=== PATIENT | female | born 1995 | race Hispanic/Latino ===

== ENCOUNTER 2017-10-14 01:12 | Inpatient (IN) | payer MEDICAID, OTHER ==
[~2017-10-14] VITALS: Ht 160 cm; Wt 76.2 kg
[~2017-10-14 01:12] MED LIST: PREN-64 PO
[2017-10-14 01:35] VITALS: BP 107/58
[2017-10-14 01:56] LABS: BILIRUBIN,URINE Negative (NEGATIVE); COLOR,URINE Yellow (YELLOW); GLUCOSE, URINE (UA) Negative (NEGATIVE); KETONES,URINE Negative (NEGATIVE); LEUKOCYTE ESTERASE ,URINE Large (NEGATIVE); NITRATE,URINE Negative (NEGATIVE); OCCULT BLOOD,URINE Negative (NEGATIVE); PROTEIN,URINE Negative (NEGATIVE)
[2017-10-14 02:01] LABS: APPEARANCE,URINE CLOUDY (CLEAR)
[2017-10-14] MEDS ORDERED: LACTATED RINGERS 1000ML 1,000 ML IV PRN (02:02)
[2017-10-14 02:15] LABS: HEMATOCRIT 38.7 % (36-48); MEAN CORPUSCULAR HEMOGLOBIN 31.5 pg (27.0-33.0); MEAN CORPUSCULAR VOLUME 92.5 fL (80-100); NUCLEATED RED BLOOD CELLS 0.1 % (0.0-0.19); PLATELET COUNT (AUTO) 257 K/uL (130-400); RED BLOOD CELL COUNT(AUTO) 4.18 MIL/uL (4.00-5.50); RED CELL DISTRIBUTION WIDTH 14.6 % (11.0-15.5); WHITE BLOOD COUNT (AUTO) 11.2 K/uL (4.8-10.8)
[2017-10-14] MEDS ORDERED: BUTORPHANOL TARTRATE 2 MG/ML IVP PRN (02:15)
[2017-10-14] MEDS ORDERED: PROMETHAZINE HCL 25 MG/ML 1ML AMPULE IM PRN (02:15)
[2017-10-14 02:17] LABS: BACTERIA,URINE Few /HPF (None Seen); RBC,URINE None Seen /HPF (0-1)
[2017-10-14 02:18] LABS: MUCUS,URINE Rare LPF (None Seen); SQUAMOUS EPITHELIAL CELL,UR Moderate /HPF (0-2)
[2017-10-14] MEDS ORDERED: LACTATED RINGERS 1000ML 1,000 ML IV ONE ×3 (02:34→05:43)
[2017-10-14] MEDS ORDERED: LIDOCAINE HCL 1% 20 ML VIAL ONE (02:35)
[2017-10-14] MEDS ORDERED: OXYTOCIN 10 USP UNITS/ML ONE ×2 (02:35→05:43)
[2017-10-14] MEDS ORDERED: BUTORPHANOL TARTRATE 2 MG/ML ONE (02:37)
[2017-10-14 02:43] LABS: AMPHET/METH SCREEN,URINE NEGATIVE (NEGATIVE); BARBITURATE SCREEN, URINE NEGATIVE (NEGATIVE); BENZODIAZEPINES SCREEN,URINE NEGATIVE (NEGATIVE); CANNABINOID SCREEN,URINE NEGATIVE (NEGATIVE); COCAINE SCREEN,URINE NEGATIVE (NEGATIVE); OPIATE SCREEN,URINE NEGATIVE (NEGATIVE); PHENCYCLIDINE SCREEN,URINE NEGATIVE (NEGATIVE)
[2017-10-14] MEDS ORDERED: PROMETHAZINE HCL 25 MG/ML 1ML AMPULE IM ONE (02:48)
[2017-10-14] MEDS: OXYTOCIN-LR 20 UNITS/1000 ML 1,000 ML IV SCH ×2 (04:31→05:50)
[2017-10-14] MEDS ORDERED: SILVER NITRATE APPLICATOR 1 SWAB TP ONE (04:41)
[2017-10-14] MEDS ORDERED: DIPH,PERTUSS(ACELL),TET VAC/PF 0.5 ML VIAL IM PRN (05:00)
[2017-10-14] MEDS ORDERED: ACETAMINOPHEN-CODEINE 300/30MG TAB PO PRN (05:00)
[2017-10-14] MEDS ORDERED: MEASLES/MUMPS/RUBELLA VACCINE, LIVE 0.5 ML/VIAL SQ PRN (05:00)
[2017-10-14] MEDS ORDERED: WITCH HAZEL 1 PAD TP PRN (05:00)
[2017-10-14] MEDS ORDERED: BENZOCAINE/LANOLIN/ALOE VERA 60 ML AEROSOL TP PRN (05:00)
[2017-10-14] MEDS ORDERED: OXYTOCIN-LR 20 UNITS/1000 ML 1,000 ML IV SCH (05:00)
[2017-10-14] MEDS ORDERED: ACETAMINOPHEN 325 MG TAB PO PRN (05:00)
[2017-10-14] MEDS ORDERED: LANOLIN 30GM OINTMENT TP PRN (05:00)
[2017-10-14] MEDS: IBUPROFEN 600 MG TABLET PO PRN ×2 (06:36→17:50)
[2017-10-14 07:38] VITALS: BP 116/58
[2017-10-14] MEDS: DOCUSATE SODIUM 100 MG CAP PO SCH ×2 (09:11→21:19)
[2017-10-14 11:27] VITALS: BP 113/60
[2017-10-14 15:56] VITALS: BP 117/52
[2017-10-14 19:21] VITALS: BP 109/62
[2017-10-14 23:30] VITALS: BP 123/68
[2017-10-15 03:21] VITALS: BP 93/54
[2017-10-15 06:39] LABS: HEMATOCRIT 31.7 % (36-48); MEAN CORPUSCULAR HEMOGLOBIN 33.2 pg (27.0-33.0); MEAN CORPUSCULAR HGB CONC 35.3 g/dL (32.0-36.0); MEAN CORPUSCULAR VOLUME 93.9 fL (80-100); NUCLEATED RED BLOOD CELLS 0.1 % (0.0-0.19); PLATELET COUNT (AUTO) 227 K/uL (130-400); RED BLOOD CELL COUNT(AUTO) 3.37 MIL/uL (4.00-5.50); RED CELL DISTRIBUTION WIDTH 14.6 % (11.0-15.5); WHITE BLOOD COUNT (AUTO) 9.9 K/uL (4.8-10.8)
[2017-10-15 07:28] LABS: HEPATITIS Bs ANTIGEN SCREEN P Negative (Negative)
[2017-10-15 07:36] VITALS: BP 95/56
[2017-10-15] MEDS: DOCUSATE SODIUM 100 MG CAP PO SCH (09:08)
[2017-10-15] MEDS: IBUPROFEN 600 MG TABLET PO PRN (09:09)
[2017-10-15 11:26] VITALS: BP 98/50
== END 2017-10-15 13:55 | disposition home or self-care (01) | DRG 775 ==
LOC: EDH 01:12 → LDH 01:13 → OBSVTOIN 02:02 → WSH 07:00
PROVIDERS: ADMIT Obstetrics & Gynecology; ATTEND Obstetrics & Gynecology
PROC: 10E0XZZ Delivery of Products of Conception, External Approach (ICD-10-PCS; principal; 2017-10-14)
PROC: 10907ZC Drainage of Amniotic Fluid, Therapeutic from Products of Conception, Via Natural or Artificial Opening (ICD-10-PCS; 2017-10-14)
PROC: 3E0234Z Introduction of Serum, Toxoid and Vaccine into Muscle, Percutaneous Approach (ICD-10-PCS; 2017-10-14)
PROC: 3E0134Z Introduction of Serum, Toxoid and Vaccine into Subcutaneous Tissue, Percutaneous Approach (ICD-10-PCS; 2017-10-14)
DX: O70.0 First degree perineal laceration during delivery (principal); Z23 Encounter for immunization; Z37.0 Single live birth; Z3A.37 37 weeks gestation of pregnancy
CPT/HCPCS: 36415; 80305; 81001; 85027; 86592; 86701; 86850; 86900; 86901; 87340; 87390; J0595; J2550; J2590; J7120

== ENCOUNTER 2019-04-04 01:17 | Inpatient (IN) | payer MEDICAID, OTHER ==
[~2019-04-04] VITALS: Ht 154.9 cm; Wt 83.0 kg
[2019-04-04] MEDS ORDERED: LACTATED RINGERS 1000ML 1,000 ML IV PRN ×2 (01:37→02:22)
[2019-04-04 02:24] LABS: APPEARANCE,URINE Clear (CLEAR); BILIRUBIN,URINE Negative (NEGATIVE); COLOR,URINE Yellow (YELLOW); GLUCOSE, URINE (UA) Negative (NEGATIVE); KETONES,URINE Negative (NEGATIVE); LEUKOCYTE ESTERASE ,URINE Moderate (NEGATIVE); NITRATE,URINE Negative (NEGATIVE); OCCULT BLOOD,URINE Trace (NEGATIVE); PROTEIN,URINE Negative (NEGATIVE)
[2019-04-04] MEDS ORDERED: AMPICILLIN 2GM+NS 100ML 100 ML IV SCH (02:25)
[2019-04-04] MEDS ORDERED: LACTATED RINGERS 1000ML 1,000 ML IV ONE (02:30)
[2019-04-04] MEDS ORDERED: OXYTOCIN-LR 20 UNITS/1000 ML 1,000 ML IV SCH ×3 (02:30→07:00)
[2019-04-04] MEDS ORDERED: AMPICILLIN 2GM+NS 100ML 100 ML IV ONE (02:31)
[2019-04-04 02:35] LABS: HEMATOCRIT 37.4 % (36-48); MEAN CORPUSCULAR HEMOGLOBIN 32.9 pg (27.0-33.0); MEAN CORPUSCULAR HGB CONC 34.8 g/dL (32.0-36.0); MEAN CORPUSCULAR VOLUME 94.5 fL (79-99); NUCLEATED RED BLOOD CELLS 0.1 % (0.0-0.19); PLATELET COUNT (AUTO) 264 K/uL (130-400); RED BLOOD CELL COUNT(AUTO) 3.95 MIL/uL (4.00-5.50); RED CELL DISTRIBUTION WIDTH 13.4 % (11.0-15.5); WHITE BLOOD COUNT (AUTO) 10.6 K/uL (4.8-10.8)
[2019-04-04 02:39] LABS: BACTERIA,URINE Few /HPF (None Seen); SQUAMOUS EPITHELIAL CELL,UR Moderate /HPF (0-2)
[2019-04-04 03:15] VITALS: BP 127/77
[2019-04-04] MEDS ORDERED: OXYTOCIN 10 USP UNITS/ML 20 UNIT in LACTATED RINGERS 1000ML 1,000 ML IV SCH (05:00)
[2019-04-04] MEDS ORDERED: MEPERIDINE-PF 50 MG/ML SYG ONE (05:21)
[2019-04-04] MEDS ORDERED: MEPERIDINE-PF 50 MG/ML SYG IM ONE (05:30)
[2019-04-04] MEDS ORDERED: PROMETHAZINE HCL 25 MG/ML 1ML AMPULE IM ONE (05:30)
[2019-04-04] MEDS: AMPICILLIN 1GM+NS 50ML 50 ML IV SCH ×3 (06:30→14:30)
[2019-04-04] MEDS ORDERED: ACETAMINOPHEN 325 MG TAB PO PRN (06:45)
[2019-04-04] MEDS ORDERED: BENZOCAINE/LANOLIN/ALOE VERA 60 ML AEROSOL TP PRN (06:45)
[2019-04-04] MEDS ORDERED: ACETAMINOPHEN-CODEINE 300/30MG TAB PO PRN (06:45)
[2019-04-04] MEDS ORDERED: LANOLIN 30GM OINTMENT TP PRN (06:45)
[2019-04-04] MEDS ORDERED: WITCH HAZEL 1 PAD TP PRN (06:45)
[2019-04-04 07:45] VITALS: BP 118/78
--- NOTE | 2019-04-04 08:50 | NUR ---
PT. SLEEPING WITH BABY IN ARMS. BABY PLACED IN CRIB. ADVISED PT TO KEEP BABY IN CRIB WHEN SHE IS SLEEPING TO PREVENT INJURY. PT VOICED UNDERSTANDING.
[2019-04-04] MEDS: DOCUSATE SODIUM 100 MG CAP PO SCH ×2 (09:29→20:27)
[2019-04-04] MEDS: IBUPROFEN 600 MG TABLET PO PRN ×2 (09:31→18:29)
[2019-04-04 11:45] VITALS: BP 116/73
[2019-04-04] MEDS ORDERED: FLU VACC QS2019-20 36MOS UP/PF 60 MCG/0.5 ML ML IM ONE ×2 (12:00→15:00)
[2019-04-04 16:40] VITALS: BP 120/62
[2019-04-04] MEDS ORDERED: DIPH,PERTUSS(ACELL),TET VAC/PF 0.5 ML VIAL IM ONE (19:00)
[2019-04-04 19:57] VITALS: BP 122/76
[2019-04-04 23:33] VITALS: BP 113/50
[2019-04-05 03:53] VITALS: BP 113/57
[2019-04-05 05:40] LABS: HEMATOCRIT 31.9 % (36-48); MEAN CORPUSCULAR HEMOGLOBIN 33.7 pg (27.0-33.0); MEAN CORPUSCULAR HGB CONC 35.3 g/dL (32.0-36.0); MEAN CORPUSCULAR VOLUME 95.4 fL (79-99); PLATELET COUNT (AUTO) 211 K/uL (130-400); RED BLOOD CELL COUNT(AUTO) 3.34 MIL/uL (4.00-5.50); RED CELL DISTRIBUTION WIDTH 13.6 % (11.0-15.5); WHITE BLOOD COUNT (AUTO) 9.4 K/uL (4.8-10.8)
[2019-04-05 07:24] VITALS: BP 116/57
[2019-04-05 08:12] LABS: HEPATITIS Bs ANTIGEN SCREEN P Negative (Negative)
[2019-04-05] MEDS: DOCUSATE SODIUM 100 MG CAP PO SCH ×2 (09:27→21:43)
[2019-04-05] MEDS: IBUPROFEN 600 MG TABLET PO PRN ×2 (09:28→21:43)
[2019-04-05 11:16] VITALS: BP 125/83
[2019-04-05 16:48] VITALS: BP 117/73
[2019-04-05 19:37] VITALS: BP 108/74
[2019-04-05 23:32] VITALS: BP 128/66
[2019-04-06 03:37] VITALS: BP 117/73
[2019-04-06 07:27] VITALS: BP 116/67
[2019-04-06] MEDS: DOCUSATE SODIUM 100 MG CAP PO SCH (09:40)
[2019-04-06] MEDS: IBUPROFEN 600 MG TABLET PO PRN (09:40)
[2019-04-06] MEDS: AMPICILLIN 1GM+NS 50ML 50 ML IV SCH (10:30)
[2019-04-06 11:54] VITALS: BP 118/72
--- NOTE | 2019-04-06 12:10 | NUR ---
DISCHARGE INSTRUCTIONS READ AND EXPLAINED. QUESTIONS INVITED AND ANSWERED. NO NEW PRESCRIPTIONS GIVEN. PT VOICED UNDERSTANDING.
--- NOTE | 2019-04-06 13:05 | NUR ---
PATIENT LEFT UNIT VIA WHEELCHAIR WITH BABY IN HAND. PERSONAL VEHICLE USED FOR TRANSPORTATION. BABY SECURE IN CARSEAT IN THE UNIT. NO COMPLAINTS OR CONCERNS ADDRESSED FROM PT ON DISCHARGE.
== END 2019-04-06 13:05 | disposition home or self-care (01) | DRG 807 ==
LOC: EDH 01:17 → LDH 01:18 → OBSVTOIN 01:18 → WSH 07:38
PROVIDERS: ADMIT Obstetrics & Gynecology; ATTEND Obstetrics & Gynecology
PROC: 10E0XZZ Delivery of Products of Conception, External Approach (ICD-10-PCS; principal; 2019-04-04)
PROC: 3E02340 Introduction of Influenza Vaccine into Muscle, Percutaneous Approach (ICD-10-PCS; 2019-04-04)
DX: O99.824 Streptococcus B carrier state complicating childbirth (principal); Z37.0 Single live birth; Z23 Encounter for immunization; Z3A.37 37 weeks gestation of pregnancy
CPT/HCPCS: 36415; 81001; 85027; 86592; 86850; 86900; 86901; 87340; 90715; G0378; J0290; J2175; J2590; J7120